=== PATIENT | male | born 1955 | race Caucasian/White ===

== ENCOUNTER 2022-06-30 15:41 | Inpatient (IN) | payer MEDICARE, MEDICAID ==
[~2022-06-30] VITALS: Ht 167.6 cm; Wt 117.0 kg
[2022-06-30 19:26] LABS: ALANINE AMINOTRANSFERASE 58 U/L (12-78); ALBUMIN 2.4 g/dL (3.4-5.0); ALKALINE PHOSPHATASE 327 U/L (46-116); ANION GAP 7 mmol/L (8-16); ASPARTATE AMINOTRANSFERASE 60 U/L (15-37); BILIRUBIN,TOTAL 1.3 mg/dL (0.1-1.0); CARBON DIOXIDE 25 mmol/L (22-29); CHLORIDE 104 mmol/L (98-107); CREATININE 2.07 mg/dL (0.60-1.30); GLUCOSE,RANDOM 88 mg/dL (70-110); POTASSIUM 4.1 mmol/L (3.5-5.1); SODIUM SERUM 136 mmol/L (136-145); THYROID STIMULATING HORMONE 7.68 uIU/mL (0.36-3.74); TOTAL PROTEIN, SERUM 5.8 g/dL (6.4-8.2); UREA NITROGEN, BLOOD 43 mg/dL (7-18)
[2022-06-30 19:29] LABS: GLOMERULAR FILTR. RATE CALC 32 mL/min (>60)
[2022-06-30 19:31] LABS: CALCIUM, TOTAL 16.8 mg/dL (8.8-10.5)
[2022-06-30 19:37] LABS: COVID AG,FIA SOURCE NASOPHARYNGEAL
[2022-06-30] MEDS ORDERED: LORazepam 2 MG/ML VIAL IM ONE (19:45)
[2022-06-30] MEDS ORDERED: DiphenhydrAMINE HCL 50 MG/ML VIAL IM ONE (19:45)
[2022-06-30] MEDS ORDERED: SODIUM CHLORIDE 0.9% 1,000 ML IV ONE (19:45)
[2022-06-30] MEDS ORDERED: HALOPERIDOL LACTATE 5 MG/ML VIAL IM ONE (19:45)
[2022-06-30 21:48] LABS: APPEARANCE,URINE CLEAR (CLEAR); BILIRUBIN,URINE NEGATIVE (NEGATIVE); GLUCOSE, URINE (UA) NEGATIVE (NEGATIVE); KETONES,URINE NEGATIVE (NEGATIVE); LEUKOCYTE ESTERASE ,URINE NEGATIVE (NEGATIVE); NITRATE,URINE NEGATIVE (NEGATIVE); OCCULT BLOOD,URINE MODERATE (NEGATIVE); PH,URINE 5.5 (5.0-8.0); PROTEIN,URINE NEGATIVE (NEGATIVE); SPECIFIC GRAVITIY, URINE 1.014 (1.003-1.030); UROBILINOGEN,URINE <=1.0 mg/dL (<=1.0)
[2022-06-30 21:53] LABS: AMPHET/METH SCREEN,URINE POSITIVE (NEGATIVE); BARBITURATE SCREEN, URINE NEGATIVE (NEGATIVE); BENZODIAZEPINES SCREEN,URINE NEGATIVE (NEGATIVE); CANNABINOID SCREEN,URINE NEGATIVE (NEGATIVE); COCAINE SCREEN,URINE NEGATIVE (NEGATIVE); METHADONE SCREEN, URINE NEGATIVE (NEGATIVE); OPIATE SCREEN,URINE NEGATIVE (NEGATIVE)
[2022-06-30 21:56] LABS: PHENCYCLIDINE SCREEN,URINE NEGATIVE (NEGATIVE)
[2022-06-30 22:03] LABS: INR 1.3 (0.9-1.1); PROTHROMBIN TIME 13.6 SEC (9.4-11.6)
[2022-06-30 22:09] LABS: BACTERIA,URINE None Seen /HPF (None Seen); WBC,URINE 0-2 /HPF (0-5)
[2022-06-30 22:17] LABS: LACTIC ACID 2.5 mmol/L (0.4-2.0)
[2022-06-30 22:27] LABS: BASOPHILS % (AUTO) 0.2 % (0.0-2.0); EOSINOPHILS % (AUTO) 2.1 % (1.0-6.0); HEMOGLOBIN 14.6 g/dL (13.5-17.5); LYMPHOCYTES # (AUTO) 0.6 K/uL (1.0-4.8); LYMPHOCYTES % (AUTO) 9.2 % (22.0-44.0); MEAN CORPUSCULAR HEMOGLOBIN 34.1 pg (26.0-34.0); MEAN CORPUSCULAR HGB CONC 34.1 G/dL (31.0-37.0); MEAN CORPUSCULAR VOLUME 100 fL (80-100); MONOCYTES # (AUTO) 0.8 K/uL (0.1-1.0); MONOCYTES % (AUTO) 12.4 % (2.0-9.0); NEUTROPHILS # (AUTO) 4.8 K/uL (1.8-7.7); NEUTROPHILS % (AUTO) 76.1 % (40.0-70.0); RED BLOOD CELL COUNT(AUTO) 4.29 MIL/uL (4.50-5.90); RED CELL DISTRIBUTION WIDTH 15.4 % (11.5-14.5)
[2022-06-30] MEDS ORDERED: AZITHROMYCIN 500 MG/NS 250 ML IV ONE (22:30)
[2022-06-30] MEDS ORDERED: CefTRIAXone 1 GM/DEXTROSE 50 ML IV ONE (22:30)
[2022-06-30 22:39] LABS: PLATELET COUNT (AUTO) 81 K/uL (150-450)
[2022-06-30] MEDS ORDERED: ONDANSETRON HCL 4 MG/2 ML VIAL IVP PRN (23:30)
[2022-06-30] MEDS ORDERED: ACETAMINOPHEN 325 MG TABLET PO PRN (23:30)
[2022-06-30] MEDS ORDERED: 0.9% SODIUM CHLORIDE 10 ML SYRINGE IVP PRN (23:30)
[2022-07-01] MEDS ORDERED: IPRATROPIUM BROMIDE 0.5 MG/2.5 ML NEB SOLUTION NEB PRN (00:30)
[2022-07-01] MEDS ORDERED: ZOLPIDEM TARTRATE 5 MG TABLET PO PRN (00:30)
[2022-07-01] MEDS ORDERED: BISACODYL 10 MG RECTAL RECTAL SUPPOSITORY PR PRN (00:30)
[2022-07-01] MEDS ORDERED: ACETAMINOPHEN 325 MG TABLET PO PRN (00:30)
[2022-07-01] MEDS ORDERED: ALBUTEROL SULFATE 2.5 MG/0.5 ML NEB SOLUTION NEB PRN (00:30)
[2022-07-01] MEDS ORDERED: ONDANSETRON HCL 4 MG/2 ML VIAL IVP PRN (00:30)
[2022-07-01] MEDS ORDERED: MAGNESIUM HYDROXIDE SUSPENSION 30 ML UDCUP PO PRN (00:30)
[2022-07-01 05:42] VITALS: BP 127/67
[2022-07-01] MEDS ORDERED: MULT-413 PO (05:42)
[2022-07-01] MEDS ORDERED: ATOR20TA65 PO (05:42)
[2022-07-01] MEDS ORDERED: BUPR-345 PO (05:42)
[2022-07-01] MEDS ORDERED: VITA-328 PO (05:42)
[2022-07-01] MEDS ORDERED: ESCI20TA37 PO (05:42)
[2022-07-01] MEDS ORDERED: METO25 PO (05:42)
[2022-07-01] MEDS ORDERED: LOSA-381 PO (05:42)
[2022-07-01] MEDS ORDERED: OLAN5TAB30 PO (05:42)
[2022-07-01] MEDS ORDERED: APIX5TAB PO (05:42)
[2022-07-01] MEDS ORDERED: BUME1TAB34 PO (05:42)
[2022-07-01 06:25] LABS: BASOPHILS % (AUTO) 0.2 % (0.0-2.0); EOSINOPHILS % (AUTO) 1.8 % (1.0-6.0); HEMATOCRIT 39.7 % (41-53); HEMOGLOBIN 13.7 g/dL (13.5-17.5); LYMPHOCYTES # (AUTO) 0.5 K/uL (1.0-4.8); MEAN CORPUSCULAR HEMOGLOBIN 34.3 pg (26.0-34.0); MEAN CORPUSCULAR HGB CONC 34.6 G/dL (31.0-37.0); MEAN CORPUSCULAR VOLUME 99 fL (80-100); MONOCYTES # (AUTO) 0.7 K/uL (0.1-1.0); MONOCYTES % (AUTO) 13.5 % (2.0-9.0); NEUTROPHILS # (AUTO) 3.9 K/uL (1.8-7.7); NEUTROPHILS % (AUTO) 74.5 % (40.0-70.0); PLATELET COUNT (AUTO) 65 K/uL (150-450); RED BLOOD CELL COUNT(AUTO) 4.01 MIL/uL (4.50-5.90); RED CELL DISTRIBUTION WIDTH 15.3 % (11.5-14.5)
[2022-07-01 06:56] LABS: ALBUMIN 2.1 g/dL (3.4-5.0); BILIRUBIN,TOTAL 1.1 mg/dL (0.1-1.0); CREATININE 1.9 mg/dL (0.60-1.30); TOTAL PROTEIN, SERUM 5.2 g/dL (6.4-8.2)
[2022-07-01 07:08] LABS: CALCIUM, TOTAL 15.3 mg/dL (8.8-10.5)
[2022-07-01] MEDS ORDERED: SODIUM CHLORIDE 0.9% 1,000 ML IV ONE (08:00)
[2022-07-01 08:11] VITALS: BP 123/79
[2022-07-01] MEDS: SODIUM CHLORIDE 0.45% 1,000 ML IV SCH ×3 (08:30→22:48)
[2022-07-01] MEDS: BuPROPion HCL XL 150 MG ER TABLET PO SCH ×2 (09:00→13:01)
[2022-07-01] MEDS: OLANZapine 5 MG TABLET PO SCH (09:00)
[2022-07-01] MEDS: PAMIDRONATE DISODIUM 90 MG in SODIUM CHLORIDE 0.9% 500 ML IV ONE ×2 (09:00→13:01)
[2022-07-01] MEDS ORDERED: METOPROLOL TARTRATE 25 MG TABLET PO SCH (09:00)
[2022-07-01 09:38] LABS: PLATELET MORPHOLOGY COMMENT LARGE PLTS PRESENT
[2022-07-01] MEDS ORDERED: TRAZ-257 PO (11:27)
[2022-07-01] MEDS ORDERED: OLAN5TAB52 PO (11:27)
[2022-07-01] MEDS ORDERED: ESCI-8 PO (11:27)
[2022-07-01] MEDS ORDERED: BUPR-50 PO (11:27)
[2022-07-01 12:00] VITALS: BP 145/74
[2022-07-01] MEDS: CALCITONIN,SALMON,SYNTHETIC 200 UNITS/ML 2 ML VIAL SQ SCH ×2 (13:01→21:00)
[2022-07-01] MEDS: DOCUSATE SODIUM 100 MG CAPSULE PO SCH ×2 (13:01→21:00)
[2022-07-01] MEDS: APIXABAN 5 MG TABLET PO SCH ×2 (13:01→21:00)
[2022-07-01] MEDS: PANTOPRAZOLE SODIUM 40 MG/VIAL IVP SCH (13:01)
[2022-07-01 16:13] VITALS: BP 131/75
[2022-07-01 17:57] LABS: CREATININE 2.04 mg/dL (0.60-1.30); MAGNESIUM 1.1 mg/dL (1.80-2.40); PHOSPHORUS 3.5 mg/dL (2.5-4.9); POTASSIUM 4.5 mmol/L (3.5-5.1)
[2022-07-01 19:40] VITALS: BP 146/68
[2022-07-01] MEDS: TraZODone HCL 50 MG TABLET PO SCH (21:00)
[2022-07-02 04:15] VITALS: BP 139/76
[2022-07-02 08:15] VITALS: BP 123/96
[2022-07-02] MEDS: PANTOPRAZOLE SODIUM 40 MG/VIAL IVP SCH (09:00)
[2022-07-02] MEDS: LACTULOSE 20 GM/30 ML SOLUTION UDCUP PO SCH ×4 (10:29→23:12)
[2022-07-02] MEDS: METOPROLOL SUCCINATE 25 MG ER TABLET PO SCH (10:29)
[2022-07-02] MEDS: DOCUSATE SODIUM 100 MG CAPSULE PO SCH ×2 (10:29→20:56)
[2022-07-02] MEDS: APIXABAN 5 MG TABLET PO SCH ×2 (10:29→20:56)
[2022-07-02] MEDS: OLANZapine 5 MG TABLET PO SCH (10:30)
[2022-07-02] MEDS: CALCITONIN,SALMON,SYNTHETIC 200 UNITS/ML 2 ML VIAL SQ SCH ×2 (10:30→20:56)
[2022-07-02] MEDS: BuPROPion HCL XL 150 MG ER TABLET PO SCH (10:30)
[2022-07-02 11:16] VITALS: BP 100/67
[2022-07-02 12:31] LABS: CREATININE 1.99 mg/dL (0.60-1.30); PHOSPHORUS 2.8 mg/dL (2.5-4.9); POTASSIUM 4.2 mmol/L (3.5-5.1)
[2022-07-02 12:38] LABS: CALCIUM, TOTAL 14.4 mg/dL (8.8-10.5)
[2022-07-02] MEDS: SODIUM CHLORIDE 0.45% 1,000 ML IV SCH (13:20)
[2022-07-02 20:55] VITALS: BP 142/85
[2022-07-02] MEDS: TraZODone HCL 50 MG TABLET PO SCH (20:56)
[2022-07-02] MEDS ORDERED: MAGNESIUM SULFATE 2 GM/WATER 50 ML IV ONE (21:00)
[2022-07-02] MEDS: HALOPERIDOL LACTATE 5 MG/ML VIAL IVP PRN (23:12)
[2022-07-03 00:58] VITALS: BP 148/90
[2022-07-03] MEDS: SODIUM CHLORIDE 0.45% 1,000 ML IV SCH ×2 (01:39→17:06)
[2022-07-03 04:42] VITALS: BP 128/92
[2022-07-03 06:00] LABS: CREATININE 1.82 mg/dL (0.60-1.30); MAGNESIUM 1.4 mg/dL (1.80-2.40); PHOSPHORUS 2.9 mg/dL (2.5-4.9); POTASSIUM 3.5 mmol/L (3.5-5.1)
[2022-07-03 06:06] LABS: CALCIUM, TOTAL 14.3 mg/dL (8.8-10.5)
[2022-07-03 06:13] LABS: BASOPHILS % (AUTO) 0.3 % (0.0-2.0); EOSINOPHILS % (AUTO) 3.1 % (1.0-6.0); HEMATOCRIT 40.1 % (41-53); HEMOGLOBIN 13.6 g/dL (13.5-17.5); LYMPHOCYTES # (AUTO) 0.6 K/uL (1.0-4.8); LYMPHOCYTES % (AUTO) 10.3 % (22.0-44.0); MEAN CORPUSCULAR HGB CONC 33.9 G/dL (31.0-37.0); MEAN CORPUSCULAR VOLUME 100 fL (80-100); MONOCYTES # (AUTO) 0.7 K/uL (0.1-1.0); NEUTROPHILS # (AUTO) 3.9 K/uL (1.8-7.7); NEUTROPHILS % (AUTO) 72.3 % (40.0-70.0); PLATELET COUNT (AUTO) 67 K/uL (150-450); RED CELL DISTRIBUTION WIDTH 15.3 % (11.5-14.5)
[2022-07-03] MEDS: HALOPERIDOL LACTATE 5 MG/ML VIAL IVP PRN ×2 (06:52→17:06)
[2022-07-03 08:15] VITALS: BP 138/76
[2022-07-03] MEDS ORDERED: MAGNESIUM SULFATE 2 GM/WATER 50 ML IV ONE (08:15)
[2022-07-03] MEDS ORDERED: MAGNESIUM OXIDE 400 MG TABLET PO ONE (08:45)
[2022-07-03] MEDS ORDERED: DEXTROSE 5%-WATER 1,000 ML IV ONE (08:45)
[2022-07-03] MEDS: OLANZapine 5 MG TABLET PO SCH ×2 (09:17→21:13)
[2022-07-03] MEDS: PANTOPRAZOLE SODIUM 40 MG/VIAL IVP SCH (09:17)
[2022-07-03] MEDS: APIXABAN 5 MG TABLET PO SCH ×2 (09:17→21:14)
[2022-07-03] MEDS: BuPROPion HCL XL 150 MG ER TABLET PO SCH (09:17)
[2022-07-03] MEDS: METOPROLOL SUCCINATE 25 MG ER TABLET PO SCH (09:17)
[2022-07-03] MEDS: DOCUSATE SODIUM 100 MG CAPSULE PO SCH ×2 (09:18→21:00)
[2022-07-03] MEDS: LACTULOSE 20 GM/30 ML SOLUTION UDCUP PO SCH ×2 (09:18→15:50)
[2022-07-03] MEDS: CALCITONIN,SALMON,SYNTHETIC 200 UNITS/ML 2 ML VIAL SQ SCH ×2 (09:19→21:15)
[2022-07-03 12:00] VITALS: BP 104/69
[2022-07-03] MEDS: TraZODone HCL 50 MG TABLET PO SCH (21:14)
[2022-07-03 21:43] VITALS: BP 157/78
[2022-07-04 00:31] VITALS: BP 140/80
[2022-07-04 06:44] LABS: CREATININE 1.62 mg/dL (0.60-1.30); MAGNESIUM 1.3 mg/dL (1.80-2.40); PHOSPHORUS 2.4 mg/dL (2.5-4.9)
[2022-07-04 06:47] VITALS: BP 142/82
[2022-07-04 06:50] LABS: POTASSIUM 3.7 mmol/L (3.5-5.1)
[2022-07-04 06:53] LABS: CALCIUM, TOTAL 12.3 mg/dL (8.8-10.5)
[2022-07-04] MEDS: LACTULOSE 20 GM/30 ML SOLUTION UDCUP PO SCH ×2 (08:00)
[2022-07-04] MEDS: SODIUM CHLORIDE 0.45% 1,000 ML IV SCH (08:03)
[2022-07-04 08:08] VITALS: BP 157/65
[2022-07-04] MEDS: PANTOPRAZOLE SODIUM 40 MG/VIAL IVP SCH (08:17)
[2022-07-04] MEDS: CALCITONIN,SALMON,SYNTHETIC 200 UNITS/ML 2 ML VIAL SQ SCH ×2 (08:17→20:43)
[2022-07-04] MEDS: OLANZapine 5 MG TABLET PO SCH ×2 (08:18→21:28)
[2022-07-04] MEDS: DOCUSATE SODIUM 100 MG CAPSULE PO SCH ×2 (08:18→21:00)
[2022-07-04] MEDS: METOPROLOL SUCCINATE 25 MG ER TABLET PO SCH (08:18)
[2022-07-04] MEDS: BuPROPion HCL XL 150 MG ER TABLET PO SCH (08:18)
[2022-07-04] MEDS: APIXABAN 5 MG TABLET PO SCH ×2 (08:18→21:24)
[2022-07-04] MEDS ORDERED: MAGNESIUM SULFATE 3 GM in DEXTROSE 5%-WATER 100 ML IV ONE (09:15)
[2022-07-04] MEDS: SODIUM,POTASSIUM PHOSPHATES POWDER PACKET PO SCH ×2 (11:04→21:28)
[2022-07-04 11:09] VITALS: BP 129/60
[2022-07-04] MEDS ORDERED: FUROSEMIDE 20 MG/2 ML VIAL IVP ONE (14:45)
[2022-07-04 16:00] VITALS: BP 131/77
[2022-07-04 19:22] VITALS: BP 135/64
[2022-07-04] MEDS: HALOPERIDOL LACTATE 5 MG/ML VIAL IVP PRN (19:36)
[2022-07-04] MEDS: TraZODone HCL 50 MG TABLET PO SCH (21:28)
[2022-07-05] VITALS (7 sets, daily range): BP systolic 104–142; BP diastolic 57–78
[2022-07-05] MEDS: PANTOPRAZOLE SODIUM 40 MG/VIAL IVP SCH (08:29)
[2022-07-05] MEDS: CALCITONIN,SALMON,SYNTHETIC 200 UNITS/ML 2 ML VIAL SQ SCH ×2 (08:29→21:29)
[2022-07-05] MEDS: METOPROLOL SUCCINATE 25 MG ER TABLET PO SCH (08:30)
[2022-07-05] MEDS: OLANZapine 5 MG TABLET PO SCH ×2 (08:30→21:31)
[2022-07-05] MEDS: BuPROPion HCL XL 150 MG ER TABLET PO SCH (08:30)
[2022-07-05] MEDS: DOCUSATE SODIUM 100 MG CAPSULE PO SCH ×2 (08:30→21:31)
[2022-07-05] MEDS: APIXABAN 5 MG TABLET PO SCH ×2 (08:30→21:31)
[2022-07-05 08:44] LABS: CREATININE 1.65 mg/dL (0.60-1.30); MAGNESIUM 1.5 mg/dL (1.80-2.40); PHOSPHORUS 2.3 mg/dL (2.5-4.9); POTASSIUM 3.6 mmol/L (3.5-5.1)
[2022-07-05 09:01] LABS: CALCIUM, TOTAL 11.7 mg/dL (8.8-10.5)
[2022-07-05] MEDS: HALOPERIDOL LACTATE 5 MG/ML VIAL IVP PRN ×3 (14:39→23:35)
[2022-07-05] MEDS: TraZODone HCL 50 MG TABLET PO SCH (21:32)
[2022-07-06 05:13] VITALS: BP 138/135
[2022-07-06 07:16] VITALS: BP 131/72
[2022-07-06] MEDS: PANTOPRAZOLE SODIUM 40 MG/VIAL IVP SCH (08:50)
[2022-07-06] MEDS: DOCUSATE SODIUM 100 MG CAPSULE PO SCH ×2 (08:55→20:42)
[2022-07-06] MEDS: APIXABAN 5 MG TABLET PO SCH ×2 (08:56→20:33)
[2022-07-06] MEDS: METOPROLOL SUCCINATE 25 MG ER TABLET PO SCH (08:56)
[2022-07-06] MEDS: CALCITONIN,SALMON,SYNTHETIC 200 UNITS/ML 2 ML VIAL SQ SCH ×2 (09:00→21:20)
[2022-07-06 10:49] LABS: BASOPHILS % (AUTO) 0.4 % (0.0-2.0); EOSINOPHILS % (AUTO) 0.8 % (1.0-6.0); HEMATOCRIT 37.3 % (41-53); HEMOGLOBIN 12.7 g/dL (13.5-17.5); LYMPHOCYTES # (AUTO) 0.5 K/uL (1.0-4.8); LYMPHOCYTES % (AUTO) 11.3 % (22.0-44.0); MEAN CORPUSCULAR VOLUME 100 fL (80-100); MONOCYTES # (AUTO) 0.5 K/uL (0.1-1.0); MONOCYTES % (AUTO) 11.7 % (2.0-9.0); NEUTROPHILS # (AUTO) 3.4 K/uL (1.8-7.7); NEUTROPHILS % (AUTO) 75.8 % (40.0-70.0); PLATELET COUNT (AUTO) 59 K/uL (150-450); RED BLOOD CELL COUNT(AUTO) 3.74 MIL/uL (4.50-5.90); RED CELL DISTRIBUTION WIDTH 15.4 % (11.5-14.5)
[2022-07-06 10:58] LABS: CREATININE 1.79 mg/dL (0.60-1.30); POTASSIUM 3.7 mmol/L (3.5-5.1)
[2022-07-06 11:03] LABS: CALCIUM, TOTAL 11.9 mg/dL (8.8-10.5)
[2022-07-06 11:13] VITALS: BP 128/72
[2022-07-06 11:17] LABS: PLATELET MORPHOLOGY COMMENT GIANT PLTS PRESENT
[2022-07-06] MEDS: HALOPERIDOL LACTATE 5 MG/ML VIAL IVP PRN (11:50)
[2022-07-06] MEDS: OLANZapine 5 MG TABLET PO SCH ×2 (11:50→20:33)
[2022-07-06] MEDS: BuPROPion HCL XL 150 MG ER TABLET PO SCH (11:50)
[2022-07-06 15:52] VITALS: BP 124/68
[2022-07-06 20:32] VITALS: BP 130/73
[2022-07-06] MEDS: TraZODone HCL 50 MG TABLET PO SCH (20:33)
[2022-07-06 23:38] VITALS: BP 142/77
[2022-07-07 05:44] VITALS: BP 136/63
[2022-07-07 06:33] LABS: BASOPHILS % (AUTO) 0.7 % (0.0-2.0); EOSINOPHILS % (AUTO) 0.9 % (1.0-6.0); HEMATOCRIT 38.7 % (41-53); HEMOGLOBIN 13.2 g/dL (13.5-17.5); LYMPHOCYTES # (AUTO) 0.6 K/uL (1.0-4.8); LYMPHOCYTES % (AUTO) 10.8 % (22.0-44.0); MEAN CORPUSCULAR HGB CONC 34.1 G/dL (31.0-37.0); MEAN CORPUSCULAR VOLUME 100 fL (80-100); MONOCYTES # (AUTO) 0.6 K/uL (0.1-1.0); MONOCYTES % (AUTO) 12.3 % (2.0-9.0); NEUTROPHILS # (AUTO) 3.9 K/uL (1.8-7.7); NEUTROPHILS % (AUTO) 75.3 % (40.0-70.0); PLATELET COUNT (AUTO) 63 K/uL (150-450); RED BLOOD CELL COUNT(AUTO) 3.88 MIL/uL (4.50-5.90); RED CELL DISTRIBUTION WIDTH 15.3 % (11.5-14.5)
[2022-07-07 06:43] LABS: CALCIUM, TOTAL 11.1 mg/dL (8.8-10.5); CREATININE 1.86 mg/dL (0.60-1.30); POTASSIUM 3.9 mmol/L (3.5-5.1)
[2022-07-07 07:20] VITALS: BP 120/74
[2022-07-07] MEDS: DOCUSATE SODIUM 100 MG CAPSULE PO SCH ×2 (07:53→20:08)
[2022-07-07] MEDS: BuPROPion HCL XL 150 MG ER TABLET PO SCH (07:53)
[2022-07-07] MEDS: APIXABAN 5 MG TABLET PO SCH ×2 (07:54→20:08)
[2022-07-07] MEDS: METOPROLOL SUCCINATE 25 MG ER TABLET PO SCH (07:54)
[2022-07-07] MEDS: OLANZapine 5 MG TABLET PO SCH ×2 (07:54→20:07)
[2022-07-07] MEDS: PANTOPRAZOLE SODIUM 40 MG/VIAL IVP SCH (08:01)
[2022-07-07] MEDS: CALCITONIN,SALMON,SYNTHETIC 200 UNITS/ML 2 ML VIAL SQ SCH ×2 (08:10→21:44)
[2022-07-07 08:38] LABS: PLATELET MORPHOLOGY COMMENT GIANT PLTS PRESENT
[2022-07-07 12:17] VITALS: BP 104/62
[2022-07-07] MEDS ORDERED: MAGNESIUM SULFATE 2 GM/WATER 50 ML IV ONE (15:00)
[2022-07-07] MEDS ORDERED: MAGNESIUM SULFATE 3 GM in DEXTROSE 5%-WATER 100 ML IV ONE (15:00)
[2022-07-07] MEDS ORDERED: MAGNESIUM SULFATE 1 GM in DEXTROSE 5%-WATER 50 ML IV ONE (15:00)
[2022-07-07] MEDS ORDERED: MAGNESIUM SULFATE 4 GM/WATER 100 ML IV ONE (15:00)
[2022-07-07 15:43] VITALS: BP 112/66
[2022-07-07] MEDS ORDERED: SODIUM CHLORIDE 0.9% 250 ML IV ONE (18:10)
[2022-07-07 19:41] VITALS: BP 129/70
[2022-07-07] MEDS: TraZODone HCL 100 MG TABLET PO SCH (20:07)
[2022-07-07] MEDS: HALOPERIDOL LACTATE 5 MG/ML VIAL IVP PRN (21:39)
[2022-07-08 01:16] VITALS: BP 122/68
[2022-07-08] MEDS: HALOPERIDOL LACTATE 5 MG/ML VIAL IVP PRN (01:55)
[2022-07-08] MEDS ORDERED: MELATONIN 3 MG TABLET PO ONE (03:15)
[2022-07-08 05:30] VITALS: BP 125/65
[2022-07-08 07:50] VITALS: BP 109/64
[2022-07-08] MEDS: METOPROLOL SUCCINATE 25 MG ER TABLET PO SCH (08:26)
[2022-07-08] MEDS: OLANZapine 5 MG TABLET PO SCH ×2 (08:26→21:21)
[2022-07-08] MEDS: BuPROPion HCL XL 150 MG ER TABLET PO SCH (08:26)
[2022-07-08] MEDS: APIXABAN 5 MG TABLET PO SCH ×2 (08:26→21:21)
[2022-07-08] MEDS: DOCUSATE SODIUM 100 MG CAPSULE PO SCH ×2 (08:27→21:21)
[2022-07-08] MEDS: PANTOPRAZOLE SODIUM 40 MG/VIAL IVP SCH (08:27)
[2022-07-08] MEDS: CALCITONIN,SALMON,SYNTHETIC 200 UNITS/ML 2 ML VIAL SQ SCH ×2 (08:27→21:22)
[2022-07-08 11:35] VITALS: BP 104/60
[2022-07-08 12:00] LABS: CALCIUM, TOTAL 11.1 mg/dL (8.8-10.5); CREATININE 1.75 mg/dL (0.60-1.30); POTASSIUM 3.8 mmol/L (3.5-5.1)
[2022-07-08 12:04] LABS: PHOSPHORUS 2.3 mg/dL (2.5-4.9)
[2022-07-08 14:45] VITALS: BP 108/66
[2022-07-08 20:01] VITALS: BP 103/67
[2022-07-08] MEDS: TraZODone HCL 100 MG TABLET PO SCH (21:21)
[2022-07-09] MEDS ORDERED: MELATONIN 3 MG TABLET PO PRN (00:30)
[2022-07-09 03:03] VITALS: BP 123/67
[2022-07-09 05:07] LABS: ALPHA-1 URINE 5.2 %; ALPHA-2 URINE 11.8 %
[2022-07-09 06:58] LABS: CALCIUM, TOTAL 11.1 mg/dL (8.8-10.5); CREATININE 1.75 mg/dL (0.60-1.30); MAGNESIUM 1.5 mg/dL (1.80-2.40); PHOSPHORUS 2.2 mg/dL (2.5-4.9); POTASSIUM 3.7 mmol/L (3.5-5.1)
[2022-07-09 08:00] VITALS: BP 106/70
[2022-07-09] MEDS ORDERED: MAGNESIUM OXIDE 400 MG TABLET PO ONE (08:15)
[2022-07-09] MEDS: BuPROPion HCL XL 150 MG ER TABLET PO SCH (08:56)
[2022-07-09] MEDS: DOCUSATE SODIUM 100 MG CAPSULE PO SCH (08:56)
[2022-07-09] MEDS: OLANZapine 5 MG TABLET PO SCH (08:56)
[2022-07-09] MEDS: PANTOPRAZOLE SODIUM 40 MG/VIAL IVP SCH (08:58)
[2022-07-09] MEDS: APIXABAN 5 MG TABLET PO SCH (08:59)
[2022-07-09] MEDS ORDERED: METOPROLOL SUCCINATE 25 MG ER TABLET PO SCH (09:00)
[2022-07-09] MEDS ORDERED: LOSARTAN POTASSIUM 25 MG TABLET PO SCH (09:00)
[2022-07-09 12:01] LABS: COVID AG,FIA SOURCE NASAL SWAB
[2022-07-09] MEDS: CALCITONIN,SALMON,SYNTHETIC 200 UNITS/ML 2 ML VIAL SQ SCH (12:05)
[2022-07-09] MEDS ORDERED: MAGNESIUM SULFATE 4 GM/WATER 100 ML IV ONE (14:00)
[2022-07-09] MEDS ORDERED: SODIUM PHOS,M-BASIC-D-BASIC 30 MMOL in DEXTROSE 5%-WATER 250 ML IV ONE (14:00)
[2022-07-09] MEDS ORDERED: APIX5TAB PO (14:45)
[2022-07-09] MEDS ORDERED: CALC400I SQ (14:49)
[2022-07-09] MEDS ORDERED: DOCU-385 PO (14:50)
[2022-07-09] MEDS ORDERED: PANT-31 PO (15:01)
[2022-07-09] MEDS ORDERED: ACET-2247 PO (15:01)
[2022-07-09] MEDS ORDERED: AUD NEB (15:02)
[2022-07-09] MEDS ORDERED: BISA10SU11 PR ×2 (15:03→15:15)
[2022-07-09] MEDS ORDERED: MELA3TAB89 PO (15:04)
[2022-07-09] MEDS ORDERED: IPRNEB IH (15:16)
== END 2022-07-09 16:45 | DRG 441 ==
LOC: EMS 15:45 → 5S 07-01 01:21 → 6S 07-08 18:40
PROVIDERS: ADMIT Hospitalist; ATTEND Hospitalist
PROC: 05HB33Z Insertion of Infusion Device into Right Basilic Vein, Percutaneous Approach (ICD-10-PCS; principal; 2022-07-02)
DX: K72.90 Hepatic failure, unspecified without coma (principal); E43 Unspecified severe protein-calorie malnutrition; I42.9 Cardiomyopathy, unspecified; I48.21 Permanent atrial fibrillation; N17.9 Acute kidney failure, unspecified; G93.40 Encephalopathy, unspecified; C34.90 Malignant neoplasm of unspecified part of unspecified bronchus or lung; C85.90 Non-Hodgkin lymphoma, unspecified, unspecified site; C95.90 Leukemia, unspecified not having achieved remission; I50.20 Unspecified systolic (congestive) heart failure; C90.00 Multiple myeloma not having achieved remission; F23 Brief psychotic disorder; Z68.41 Body mass index [BMI] 40.0-44.9, adult; E83.52 Hypercalcemia; E03.9 Hypothyroidism, unspecified; F15.10 Other stimulant abuse, uncomplicated; E83.42 Hypomagnesemia; N18.9 Chronic kidney disease, unspecified; C50.929 Malignant neoplasm of unspecified site of unspecified male breast; E83.39 Other disorders of phosphorus metabolism; Z20.822 Contact with and (suspected) exposure to COVID-19; F19.10 Other psychoactive substance abuse, uncomplicated; D69.6 Thrombocytopenia, unspecified; E66.01 Morbid (severe) obesity due to excess calories; K70.9 Alcoholic liver disease, unspecified; Z79.01 Long term (current) use of anticoagulants; Z78.1 Physical restraint status; Z79.899 Other long term (current) drug therapy
CPT/HCPCS: 36245; 36569; 70450; 71045; 76937; 80048; 80053; 81001; 81050; 82140; 82330; 82340; 82397; 82550; 82652; 83605; 83735; 83880; 83970; 84100; 84155; 84156; 84165; 84166; 84439; 84443; 84481; 84484; 85025; 85610; 85730; 86335; 87040; 93005; 93306; 97110; 97116; 97162; 97165; 97530; 97535; 99291; C9113; G0480; J0456; J0630; J0696; J1200; J1630; J1940; J2060; J2430; J3475; J3490; J7030; J7040; J7050; J7060; 36415-L1; 36415-TC; X7700

== ENCOUNTER 2022-08-06 15:12 | Inpatient (IN) | payer MEDICARE, MEDICAID ==
[~2022-08-06] VITALS: Ht 172.7 cm; Wt 97.6 kg
[~2022-08-06 15:12] MED LIST: ACET-2247 PO; APIX5TAB PO; AUD NEB; BISA10SU11 PR; BUPR-50 PO; CALC400I SQ; DOCU-385 PO; IPRNEB IH; LOSA-381 PO; MELA3TAB89 PO; METO25 PO; OLAN5TAB52 PO; PANT-31 PO; TRAZ-257 PO
[2022-08-06 18:51] LABS: BASOPHILS % (AUTO) 0.3 % (0.0-2.0); EOSINOPHILS % (AUTO) 0 % (1.0-6.0); HEMATOCRIT 41.7 % (41-53); HEMOGLOBIN 13.9 g/dL (13.5-17.5); LYMPHOCYTES # (AUTO) 0.7 K/uL (1.0-4.8); LYMPHOCYTES % (AUTO) 13.8 % (22.0-44.0); MEAN CORPUSCULAR HEMOGLOBIN 33.2 pg (26.0-34.0); MEAN CORPUSCULAR HGB CONC 33.3 G/dL (31.0-37.0); MEAN CORPUSCULAR VOLUME 100 fL (80-100); MONOCYTES # (AUTO) 0.8 K/uL (0.1-1.0); MONOCYTES % (AUTO) 15.4 % (2.0-9.0); NEUTROPHILS # (AUTO) 3.7 K/uL (1.8-7.7); NEUTROPHILS % (AUTO) 70.5 % (40.0-70.0); RED BLOOD CELL COUNT(AUTO) 4.17 MIL/uL (4.50-5.90); RED CELL DISTRIBUTION WIDTH 15.4 % (11.5-14.5)
[2022-08-06 19:04] LABS: COVID AG,FIA SOURCE NASAL SWAB
[2022-08-06 19:05] LABS: ALBUMIN 2.8 g/dL (3.4-5.0); CREATININE 4.62 mg/dL (0.60-1.30); PHOSPHORUS 4.2 mg/dL (2.5-4.9); TOTAL PROTEIN, SERUM 6.4 g/dL (6.4-8.2)
[2022-08-06 19:09] LABS: PLATELET COUNT (AUTO) 77 K/uL (150-450)
[2022-08-06 19:10] LABS: BILIRUBIN,TOTAL 1.9 mg/dL (0.1-1.0)
[2022-08-06 19:12] LABS: MAGNESIUM 1.5 mg/dL (1.80-2.40); POTASSIUM 2.9 mmol/L (3.5-5.1)
[2022-08-06 19:13] LABS: CALCIUM, TOTAL 17.7 mg/dL (8.8-10.5)
[2022-08-06] MEDS ORDERED: SODIUM CHLORIDE 0.9% 1,000 ML IV ONE ×2 (19:30→20:00)
[2022-08-06] MEDS ORDERED: SODIUM CHLORIDE 0.45% 1,000 ML IV ONE (19:45)
[2022-08-06 19:58] LABS: THYROID STIMULATING HORMONE 4.33 uIU/mL (0.36-3.74)
[2022-08-06] MEDS ORDERED: POTASSIUM CHL 20 MEQ/D5-0.2NS 1,000 ML IV ONE (20:00)
[2022-08-06] MEDS ORDERED: ONDANSETRON HCL 4 MG/2 ML VIAL IVP PRN (20:00)
[2022-08-06] MEDS ORDERED: ACETAMINOPHEN 325 MG TABLET PO PRN (20:00)
[2022-08-06] MEDS ORDERED: POTASSIUM CHLORIDE 10% 40 MEQ/30 ML LIQUID UDCUP PO ONE (20:15)
[2022-08-06] MEDS ORDERED: APIX2.5T PO (20:18)
[2022-08-06] MEDS ORDERED: PAMIDRONATE DISODIUM 90 MG in SODIUM CHLORIDE 0.9% 500 ML IV ONE (20:30)
[2022-08-06] MEDS: SODIUM CHLORIDE 0.9% 1,000 ML IV SCH (20:30)
[2022-08-06] MEDS ORDERED: BISACODYL 10 MG RECTAL RECTAL SUPPOSITORY PR PRN (20:30)
[2022-08-06] MEDS ORDERED: CALCITONIN,SALMON,SYNTHETIC 200 UNITS/ML 2 ML VIAL SQ SCH (21:00)
[2022-08-06] MEDS ORDERED: APIXABAN 2.5 MG TABLET PO SCH (21:00)
[2022-08-06] MEDS: OLANZapine 5 MG TABLET PO SCH (22:49)
[2022-08-06] MEDS: DOCUSATE SODIUM 100 MG CAPSULE PO SCH (22:49)
[2022-08-06] MEDS: MELATONIN 3 MG TABLET PO SCH (22:49)
[2022-08-06] MEDS: CALCITONIN,SALMON,SYNTHETIC 200 UNITS/ML 2 ML VIAL SQ SCH (22:55)
[2022-08-07] MEDS ORDERED: HEPARIN SODIUM,PORCINE 5,000 UNITS/ML VIAL SQ SCH
[2022-08-07 01:04] LABS: CREATININE 4.49 mg/dL (0.60-1.30); MAGNESIUM 1.3 mg/dL (1.80-2.40); PHOSPHORUS 4.3 mg/dL (2.5-4.9); POTASSIUM 3.5 mmol/L (3.5-5.1)
[2022-08-07 01:06] LABS: CALCIUM, TOTAL 16.4 mg/dL (8.8-10.5)
[2022-08-07 02:51] LABS: APPEARANCE,URINE HAZY (CLEAR); BILIRUBIN,URINE NEGATIVE (NEGATIVE); GLUCOSE, URINE (UA) NEGATIVE (NEGATIVE); KETONES,URINE NEGATIVE (NEGATIVE); LEUKOCYTE ESTERASE ,URINE NEGATIVE (NEGATIVE); NITRATE,URINE NEGATIVE (NEGATIVE); OCCULT BLOOD,URINE LARGE (NEGATIVE); PH,URINE 6.5 (5.0-8.0); PROTEIN,URINE NEGATIVE (NEGATIVE); SPECIFIC GRAVITIY, URINE 1.006 (1.003-1.030); UROBILINOGEN,URINE <=1.0 mg/dL (<=1.0)
[2022-08-07 02:56] LABS: CREATININE,URINE RANDOM 10.7 mg/dL (30.0-125.0)
[2022-08-07 03:02] LABS: BACTERIA,URINE None Seen /HPF (None Seen); RBC,URINE >100 /HPF (0-2); WBC,URINE None Seen /HPF (0-5)
[2022-08-07] MEDS: SODIUM CHLORIDE 0.9% 1,000 ML IV SCH (05:35)
[2022-08-07] MEDS ORDERED: DEXTROSE 5%-WATER 1,000 ML IV ONE (08:45)
[2022-08-07 08:59] LABS: CREATININE 4.4 mg/dL (0.60-1.30); POTASSIUM 3.6 mmol/L (3.5-5.1)
[2022-08-07] MEDS: PANTOPRAZOLE SODIUM 40 MG DR TABLET PO SCH (09:00)
[2022-08-07] MEDS: OLANZapine 5 MG TABLET PO SCH ×2 (09:00→21:00)
[2022-08-07] MEDS: DOCUSATE SODIUM 100 MG CAPSULE PO SCH ×2 (09:00→21:00)
[2022-08-07] MEDS: APIXABAN 2.5 MG TABLET PO SCH ×2 (09:00→21:00)
[2022-08-07] MEDS: BuPROPion HCL XL 150 MG ER TABLET PO SCH (09:00)
[2022-08-07] MEDS: METOPROLOL TARTRATE 25 MG TABLET PO SCH (09:00)
[2022-08-07] MEDS ORDERED: MAGNESIUM SULFATE 1 GM in DEXTROSE 5%-WATER 50 ML IV ONE (09:00)
[2022-08-07 09:06] LABS: CALCIUM, TOTAL 15.1 mg/dL (8.8-10.5)
[2022-08-07] MEDS: CALCITONIN,SALMON,SYNTHETIC 200 UNITS/ML 2 ML VIAL SQ SCH (09:51)
[2022-08-07 17:34] LABS: BASOPHILS % (AUTO) 0.3 % (0.0-2.0); EOSINOPHILS % (AUTO) 0 % (1.0-6.0); HEMATOCRIT 40.6 % (41-53); HEMOGLOBIN 13.5 g/dL (13.5-17.5); LYMPHOCYTES # (AUTO) 0.8 K/uL (1.0-4.8); LYMPHOCYTES % (AUTO) 15.7 % (22.0-44.0); MEAN CORPUSCULAR HEMOGLOBIN 33.4 pg (26.0-34.0); MEAN CORPUSCULAR HGB CONC 33.2 G/dL (31.0-37.0); MEAN CORPUSCULAR VOLUME 101 fL (80-100); MONOCYTES # (AUTO) 0.6 K/uL (0.1-1.0); MONOCYTES % (AUTO) 11.6 % (2.0-9.0); NEUTROPHILS # (AUTO) 3.9 K/uL (1.8-7.7); NEUTROPHILS % (AUTO) 72.4 % (40.0-70.0); RED BLOOD CELL COUNT(AUTO) 4.03 MIL/uL (4.50-5.90); RED CELL DISTRIBUTION WIDTH 16.1 % (11.5-14.5)
[2022-08-07 17:49] LABS: ALBUMIN 2.4 g/dL (3.4-5.0); BILIRUBIN,TOTAL 1.8 mg/dL (0.1-1.0); CREATININE 4.19 mg/dL (0.60-1.30); POTASSIUM 3.4 mmol/L (3.5-5.1)
[2022-08-07 17:51] LABS: CALCIUM, TOTAL 14.8 mg/dL (8.8-10.5)
[2022-08-07 18:04] LABS: PLATELET COUNT (AUTO) 64 K/uL (150-450); PLATELET MORPHOLOGY COMMENT GIANT PLTS PRESENT
[2022-08-07] MEDS: MELATONIN 3 MG TABLET PO SCH (21:00)
[2022-08-08 01:10] VITALS: BP 128/58
[2022-08-08] MEDS: CALCITONIN,SALMON,SYNTHETIC 200 UNITS/ML 2 ML VIAL SQ SCH ×3 (01:55→20:48)
[2022-08-08 04:23] VITALS: BP 100/51
[2022-08-08 08:00] VITALS: BP 130/70
[2022-08-08] MEDS: BuPROPion HCL XL 150 MG ER TABLET PO SCH (09:17)
[2022-08-08] MEDS: DOCUSATE SODIUM 100 MG CAPSULE PO SCH ×2 (09:17→20:36)
[2022-08-08] MEDS: METOPROLOL TARTRATE 25 MG TABLET PO SCH (09:18)
[2022-08-08] MEDS: OLANZapine 5 MG TABLET PO SCH ×2 (09:18→20:36)
[2022-08-08] MEDS: PANTOPRAZOLE SODIUM 40 MG DR TABLET PO SCH (09:19)
[2022-08-08] MEDS: APIXABAN 2.5 MG TABLET PO SCH ×2 (09:19→20:36)
[2022-08-08 09:34] LABS: BASOPHILS % (AUTO) 0.2 % (0.0-2.0); EOSINOPHILS % (AUTO) 0 % (1.0-6.0); HEMATOCRIT 43.2 % (41-53); HEMOGLOBIN 14.3 g/dL (13.5-17.5); LYMPHOCYTES % (AUTO) 15.2 % (22.0-44.0); MEAN CORPUSCULAR HEMOGLOBIN 33.4 pg (26.0-34.0); MEAN CORPUSCULAR HGB CONC 33.2 G/dL (31.0-37.0); MEAN CORPUSCULAR VOLUME 101 fL (80-100); MONOCYTES # (AUTO) 0.8 K/uL (0.1-1.0); MONOCYTES % (AUTO) 12.1 % (2.0-9.0); NEUTROPHILS # (AUTO) 4.9 K/uL (1.8-7.7); NEUTROPHILS % (AUTO) 72.5 % (40.0-70.0); PLATELET COUNT (AUTO) 76 K/uL (150-450); RED BLOOD CELL COUNT(AUTO) 4.29 MIL/uL (4.50-5.90); RED CELL DISTRIBUTION WIDTH 15.8 % (11.5-14.5)
[2022-08-08 09:40] LABS: PLATELET MORPHOLOGY COMMENT GIANT PLTS PRESENT
[2022-08-08 09:47] LABS: INR 1.3 (0.9-1.1)
[2022-08-08 09:59] LABS: ALBUMIN 2.6 g/dL (3.4-5.0); BILIRUBIN,TOTAL 2.7 mg/dL (0.1-1.0); CREATININE 4.18 mg/dL (0.60-1.30); POTASSIUM 3.8 mmol/L (3.5-5.1); TOTAL PROTEIN, SERUM 6.4 g/dL (6.4-8.2)
[2022-08-08 10:13] LABS: CALCIUM, TOTAL 14.1 mg/dL (8.8-10.5)
[2022-08-08] MEDS: SODIUM CHLORIDE 0.45% 1,000 ML IV SCH ×2 (11:29→20:35)
[2022-08-08 12:00] VITALS: BP 144/112
[2022-08-08 16:00] VITALS: BP 111/66
[2022-08-08 20:20] VITALS: BP 109/64
[2022-08-08] MEDS: MELATONIN 3 MG TABLET PO SCH (20:36)
[2022-08-09 00:32] VITALS: BP 110/62
[2022-08-09] MEDS: SODIUM CHLORIDE 0.45% 1,000 ML IV SCH (06:15)
[2022-08-09 08:10] VITALS: BP 129/105
[2022-08-09] MEDS: METOPROLOL TARTRATE 25 MG TABLET PO SCH (08:39)
[2022-08-09] MEDS: APIXABAN 2.5 MG TABLET PO SCH ×2 (08:39→20:26)
[2022-08-09] MEDS: PANTOPRAZOLE SODIUM 40 MG DR TABLET PO SCH (08:39)
[2022-08-09] MEDS: DOCUSATE SODIUM 100 MG CAPSULE PO SCH ×2 (08:40→20:26)
[2022-08-09] MEDS: BuPROPion HCL XL 150 MG ER TABLET PO SCH (08:40)
[2022-08-09] MEDS: OLANZapine 5 MG TABLET PO SCH ×2 (08:40→20:26)
[2022-08-09] MEDS: CALCITONIN,SALMON,SYNTHETIC 200 UNITS/ML 2 ML VIAL SQ SCH ×2 (08:41→20:26)
[2022-08-09 12:04] LABS: MAGNESIUM 1.1 mg/dL (1.80-2.40); PHOSPHORUS 3.5 mg/dL (2.5-4.9); POTASSIUM 3.5 mmol/L (3.5-5.1)
[2022-08-09 12:25] LABS: CREATININE 4.07 mg/dL (0.60-1.30)
[2022-08-09 12:30] VITALS: BP 127/80
[2022-08-09 12:32] LABS: CALCIUM, TOTAL 11.9 mg/dL (8.8-10.5)
[2022-08-09 15:45] VITALS: BP 107/77
[2022-08-09] MEDS: POTASSIUM CHLORIDE 10 MEQ in DEXTROSE 5%-WATER 1,000 ML IV SCH (17:29)
[2022-08-09 19:20] VITALS: BP 120/64
[2022-08-09] MEDS: MELATONIN 3 MG TABLET PO SCH (20:26)
[2022-08-09 23:41] VITALS: BP 118/60
[2022-08-10 04:19] VITALS: BP 124/60
[2022-08-10 08:15] VITALS: BP 122/72
[2022-08-10] MEDS: PANTOPRAZOLE SODIUM 40 MG DR TABLET PO SCH (08:29)
[2022-08-10] MEDS: APIXABAN 2.5 MG TABLET PO SCH ×2 (08:33→20:47)
[2022-08-10] MEDS: BuPROPion HCL XL 150 MG ER TABLET PO SCH (08:34)
[2022-08-10] MEDS: DOCUSATE SODIUM 100 MG CAPSULE PO SCH ×2 (08:41→20:47)
[2022-08-10] MEDS: METOPROLOL TARTRATE 25 MG TABLET PO SCH (08:41)
[2022-08-10] MEDS: OLANZapine 5 MG TABLET PO SCH ×2 (08:42→20:47)
[2022-08-10 08:52] LABS: CREATININE 3.87 mg/dL (0.60-1.30); POTASSIUM 3.1 mmol/L (3.5-5.1)
[2022-08-10 08:55] LABS: CALCIUM, TOTAL 13.1 mg/dL (8.8-10.5)
[2022-08-10] MEDS: CALCITONIN,SALMON,SYNTHETIC 200 UNITS/ML 2 ML VIAL SQ SCH ×2 (09:00→20:47)
[2022-08-10] MEDS ORDERED: HALOPERIDOL LACTATE 5 MG/ML VIAL IM ONE (09:30)
[2022-08-10] MEDS ORDERED: POTASSIUM CHLORIDE 20 MEQ ER TABLET PO PRN (09:30)
[2022-08-10] MEDS ORDERED: MAGNESIUM SULFATE 4 GM/WATER 100 ML IV PRN (09:30)
[2022-08-10] MEDS ORDERED: MAGNESIUM SULFATE 2 GM/WATER 50 ML IV PRN (09:30)
[2022-08-10] MEDS ORDERED: MAGNESIUM OXIDE 400 MG TABLET PO PRN (09:30)
[2022-08-10 10:16] LABS: ALBUMIN 2.4 g/dL (3.4-5.0)
[2022-08-10 11:06] VITALS: BP 105/74
[2022-08-10] MEDS: POTASSIUM CHLORIDE 10 MEQ in DEXTROSE 5%-WATER 1,000 ML IV SCH (12:15)
[2022-08-10] MEDS: POTASSIUM CHL 10 MEQ/WATER 50 ML IV PRN ×3 (12:24→15:50)
[2022-08-10] MEDS ORDERED: LORazepam 2 MG/ML VIAL IVP ONE (13:00)
[2022-08-10] MEDS ORDERED: LORazepam 2 MG/ML VIAL IVP PRN (13:00)
[2022-08-10] MEDS ORDERED: MAGNESIUM SULFATE 2 GM/WATER 50 ML IV ONE (13:00)
[2022-08-10 15:04] VITALS: BP 106/72
[2022-08-10 19:59] VITALS: BP 146/76
[2022-08-10] MEDS: MELATONIN 3 MG TABLET PO SCH (20:47)
[2022-08-10 23:42] VITALS: BP 140/77
[2022-08-11] MEDS: POTASSIUM CHLORIDE 10 MEQ in DEXTROSE 5%-WATER 1,000 ML IV SCH ×2 (01:01→17:54)
[2022-08-11 05:15] VITALS: BP 129/75
[2022-08-11 08:11] VITALS: BP 130/70
[2022-08-11 08:55] LABS: CREATININE 3.96 mg/dL (0.60-1.30); MAGNESIUM 1.6 mg/dL (1.80-2.40); PHOSPHORUS 2.9 mg/dL (2.5-4.9)
[2022-08-11] MEDS: DOCUSATE SODIUM 100 MG CAPSULE PO SCH ×2 (09:00→20:20)
[2022-08-11] MEDS: OLANZapine 5 MG TABLET PO SCH ×2 (09:21→20:20)
[2022-08-11] MEDS: BuPROPion HCL XL 150 MG ER TABLET PO SCH (09:21)
[2022-08-11] MEDS: APIXABAN 2.5 MG TABLET PO SCH ×2 (09:21→20:20)
[2022-08-11] MEDS: PANTOPRAZOLE SODIUM 40 MG DR TABLET PO SCH (09:21)
[2022-08-11] MEDS: METOPROLOL TARTRATE 25 MG TABLET PO SCH (09:23)
[2022-08-11] MEDS: CALCITONIN,SALMON,SYNTHETIC 200 UNITS/ML 2 ML VIAL SQ SCH (10:23)
[2022-08-11] MEDS ORDERED: MAGNESIUM SULFATE 1 GM in DEXTROSE 5%-WATER 50 ML IV ONE (10:45)
[2022-08-11 11:47] VITALS: BP 120/65
[2022-08-11 16:03] VITALS: BP 109/61
[2022-08-11 20:10] VITALS: BP 116/68
[2022-08-11] MEDS: MELATONIN 3 MG TABLET PO SCH (20:20)
[2022-08-12 00:01] VITALS: BP 111/68
[2022-08-12 04:44] VITALS: BP 119/66
[2022-08-12 08:00] VITALS: BP 115/63
[2022-08-12 08:21] LABS: CALCIUM, TOTAL 11.3 mg/dL (8.8-10.5); CREATININE 3.89 mg/dL (0.60-1.30); MAGNESIUM 1.5 mg/dL (1.80-2.40); POTASSIUM 3.8 mmol/L (3.5-5.1)
[2022-08-12] MEDS: PANTOPRAZOLE SODIUM 40 MG DR TABLET PO SCH (08:37)
[2022-08-12] MEDS: METOPROLOL TARTRATE 25 MG TABLET PO SCH (08:37)
[2022-08-12] MEDS: BuPROPion HCL XL 150 MG ER TABLET PO SCH (08:37)
[2022-08-12] MEDS: APIXABAN 2.5 MG TABLET PO SCH ×2 (08:38→22:15)
[2022-08-12] MEDS: OLANZapine 5 MG TABLET PO SCH ×2 (08:38→22:15)
[2022-08-12] MEDS: DOCUSATE SODIUM 100 MG CAPSULE PO SCH ×2 (08:38→22:14)
[2022-08-12] MEDS: POTASSIUM CHLORIDE 10 MEQ in DEXTROSE 5%-WATER 1,000 ML IV SCH (09:32)
[2022-08-12] MEDS ORDERED: MAGNESIUM SULFATE 2 GM/WATER 50 ML IV ONE (10:30)
[2022-08-12] MEDS ORDERED: SODIUM CHLORIDE 0.9% 250 ML IV ONE (10:34)
[2022-08-12 16:30] VITALS: BP 118/65
[2022-08-12] MEDS ORDERED: DENOSUMAB 60 MG/ML SYRINGE SQ ONE (17:15)
[2022-08-12 20:00] VITALS: BP 106/68
[2022-08-12] MEDS: MELATONIN 3 MG TABLET PO SCH (22:14)
[2022-08-12 23:29] VITALS: BP 117/69
[2022-08-13 04:07] VITALS: BP 120/73
[2022-08-13 07:05] LABS: CALCIUM, TOTAL 10.6 mg/dL (8.8-10.5); CREATININE 3.92 mg/dL (0.60-1.30); MAGNESIUM 1.7 mg/dL (1.80-2.40); POTASSIUM 3.4 mmol/L (3.5-5.1)
[2022-08-13] MEDS: APIXABAN 2.5 MG TABLET PO SCH ×2 (08:25→20:03)
[2022-08-13] MEDS: OLANZapine 5 MG TABLET PO SCH ×2 (08:25→20:04)
[2022-08-13] MEDS: BuPROPion HCL XL 150 MG ER TABLET PO SCH (08:25)
[2022-08-13] MEDS: DOCUSATE SODIUM 100 MG CAPSULE PO SCH ×2 (08:25→20:06)
[2022-08-13] MEDS: PANTOPRAZOLE SODIUM 40 MG DR TABLET PO SCH (08:25)
[2022-08-13] MEDS: METOPROLOL TARTRATE 25 MG TABLET PO SCH (08:26)
[2022-08-13 08:30] VITALS: BP 124/69
[2022-08-13] MEDS ORDERED: MAGNESIUM SULFATE 1 GM in DEXTROSE 5%-WATER 50 ML IV ONE (11:15)
[2022-08-13] MEDS: POTASSIUM CHLORIDE 20 MEQ ER TABLET PO SCH (11:15)
[2022-08-13 16:29] VITALS: BP 111/95
[2022-08-13 19:44] VITALS: BP 112/74
[2022-08-13] MEDS: MELATONIN 3 MG TABLET PO SCH (20:03)
[2022-08-13] MEDS: QUEtiapine FUMARATE 25 MG TABLET PO SCH (20:19)
[2022-08-14] VITALS (7 sets, daily range): BP systolic 105–123; BP diastolic 66–76
[2022-08-14] MEDS: DOCUSATE SODIUM 100 MG CAPSULE PO SCH ×2 (09:00→21:53)
[2022-08-14] MEDS: METOPROLOL SUCCINATE 25 MG ER TABLET PO SCH (09:22)
[2022-08-14] MEDS: PANTOPRAZOLE SODIUM 40 MG DR TABLET PO SCH (09:22)
[2022-08-14] MEDS: APIXABAN 2.5 MG TABLET PO SCH ×2 (09:22→21:53)
[2022-08-14] MEDS: OLANZapine 5 MG TABLET PO SCH ×2 (09:22→21:53)
[2022-08-14] MEDS: POTASSIUM CHLORIDE 20 MEQ ER TABLET PO SCH (09:22)
[2022-08-14] MEDS: QUEtiapine FUMARATE 25 MG TABLET PO SCH ×2 (09:22→21:53)
[2022-08-14] MEDS: BuPROPion HCL XL 150 MG ER TABLET PO SCH (09:22)
[2022-08-14 11:43] LABS: CALCIUM, TOTAL 11.4 mg/dL (8.8-10.5); CREATININE 4.19 mg/dL (0.60-1.30); POTASSIUM 4.1 mmol/L (3.5-5.1)
[2022-08-14] MEDS: MELATONIN 3 MG TABLET PO SCH (21:53)
[2022-08-15 00:33] VITALS: BP 111/62
[2022-08-15 04:49] VITALS: BP 107/71
[2022-08-15 07:23] LABS: CREATININE 4.08 mg/dL (0.60-1.30)
[2022-08-15 07:26] LABS: CALCIUM, TOTAL 12.1 mg/dL (8.8-10.5)
[2022-08-15] MEDS ORDERED: DEXTROSE 5%-WATER 500 ML IV ONE (08:00)
[2022-08-15 08:10] VITALS: BP 115/65
[2022-08-15] MEDS: QUEtiapine FUMARATE 25 MG TABLET PO SCH ×2 (10:29→21:26)
[2022-08-15] MEDS: APIXABAN 2.5 MG TABLET PO SCH ×2 (10:29→21:26)
[2022-08-15] MEDS: DOCUSATE SODIUM 100 MG CAPSULE PO SCH ×2 (10:29→21:26)
[2022-08-15] MEDS: METOPROLOL SUCCINATE 25 MG ER TABLET PO SCH (10:29)
[2022-08-15] MEDS: OLANZapine 5 MG TABLET PO SCH ×2 (10:30→21:26)
[2022-08-15] MEDS: PANTOPRAZOLE SODIUM 40 MG DR TABLET PO SCH (10:30)
[2022-08-15] MEDS: BuPROPion HCL XL 150 MG ER TABLET PO SCH (10:30)
[2022-08-15] MEDS: POTASSIUM CHLORIDE 20 MEQ ER TABLET PO SCH (10:30)
[2022-08-15 10:59] VITALS: BP 104/63
[2022-08-15 16:05] VITALS: BP 114/64
[2022-08-15 17:31] LABS: GLUCOMETER DEV NAME(LOC) 5S.2B; GLUCOSE,POINT OF CARE 135 MG/DL (70-110)
[2022-08-15 19:56] VITALS: BP 104/56
[2022-08-15] MEDS: MELATONIN 3 MG TABLET PO SCH (21:27)
[2022-08-16 00:04] VITALS: BP 103/68
[2022-08-16 04:00] VITALS: BP 113/67
[2022-08-16 06:21] LABS: CREATININE 4.01 mg/dL (0.60-1.30)
[2022-08-16 06:26] LABS: BASOPHILS % (AUTO) 0.3 % (0.0-2.0); EOSINOPHILS % (AUTO) 0.1 % (1.0-6.0); HEMATOCRIT 32.4 % (41-53); HEMOGLOBIN 10.9 g/dL (13.5-17.5); LYMPHOCYTES # (AUTO) 0.4 K/uL (1.0-4.8); LYMPHOCYTES % (AUTO) 20.4 % (22.0-44.0); MEAN CORPUSCULAR HEMOGLOBIN 33.7 pg (26.0-34.0); MEAN CORPUSCULAR HGB CONC 33.5 G/dL (31.0-37.0); MEAN CORPUSCULAR VOLUME 101 fL (80-100); MONOCYTES # (AUTO) 0.4 K/uL (0.1-1.0); MONOCYTES % (AUTO) 18.3 % (2.0-9.0); NEUTROPHILS # (AUTO) 1.2 K/uL (1.8-7.7); NEUTROPHILS % (AUTO) 60.9 % (40.0-70.0); RED BLOOD CELL COUNT(AUTO) 3.22 MIL/uL (4.50-5.90); RED CELL DISTRIBUTION WIDTH 16.4 % (11.5-14.5)
[2022-08-16 06:28] LABS: CALCIUM, TOTAL 12.4 mg/dL (8.8-10.5)
[2022-08-16 07:50] VITALS: BP 104/66
[2022-08-16] MEDS: BuPROPion HCL XL 150 MG ER TABLET PO SCH (09:23)
[2022-08-16] MEDS: OLANZapine 5 MG TABLET PO SCH ×2 (09:23→21:41)
[2022-08-16] MEDS: PANTOPRAZOLE SODIUM 40 MG DR TABLET PO SCH (09:23)
[2022-08-16] MEDS: APIXABAN 2.5 MG TABLET PO SCH ×2 (09:23→21:41)
[2022-08-16] MEDS: METOPROLOL SUCCINATE 25 MG ER TABLET PO SCH (09:23)
[2022-08-16] MEDS: QUEtiapine FUMARATE 25 MG TABLET PO SCH ×2 (09:23→21:40)
[2022-08-16] MEDS: DOCUSATE SODIUM 100 MG CAPSULE PO SCH ×2 (09:24→21:40)
[2022-08-16 09:28] LABS: PLATELET COUNT (AUTO) 51 K/uL (150-450)
[2022-08-16] MEDS ORDERED: DEXTROSE 5%-WATER 500 ML IV ONE (10:45)
[2022-08-16 11:37] VITALS: BP 143/84
[2022-08-16 15:35] VITALS: BP 105/57
[2022-08-16 19:37] VITALS: BP 113/76
[2022-08-16] MEDS: MELATONIN 3 MG TABLET PO SCH (21:41)
[2022-08-17] VITALS (7 sets, daily range): BP systolic 100–112; BP diastolic 62–72
[2022-08-17] MEDS: APIXABAN 2.5 MG TABLET PO SCH ×2 (08:37→21:48)
[2022-08-17] MEDS: QUEtiapine FUMARATE 25 MG TABLET PO SCH ×2 (08:37→21:48)
[2022-08-17] MEDS: BuPROPion HCL XL 150 MG ER TABLET PO SCH (08:37)
[2022-08-17] MEDS: OLANZapine 5 MG TABLET PO SCH ×2 (08:38→21:48)
[2022-08-17] MEDS: DOCUSATE SODIUM 100 MG CAPSULE PO SCH ×2 (08:38→21:48)
[2022-08-17] MEDS: METOPROLOL SUCCINATE 25 MG ER TABLET PO SCH (08:38)
[2022-08-17] MEDS: PANTOPRAZOLE SODIUM 40 MG DR TABLET PO SCH (08:38)
[2022-08-17 11:11] LABS: ALBUMIN 2.3 g/dL (3.4-5.0); CREATININE 4.28 mg/dL (0.60-1.30); POTASSIUM 3.8 mmol/L (3.5-5.1)
[2022-08-17 11:14] LABS: CALCIUM, TOTAL 12.1 mg/dL (8.8-10.5)
[2022-08-17] MEDS: MELATONIN 3 MG TABLET PO SCH (21:48)
[2022-08-18 00:35] VITALS: BP 106/70
[2022-08-18 04:45] VITALS: BP 98/62
[2022-08-18 08:10] VITALS: BP 115/67
[2022-08-18] MEDS: DOCUSATE SODIUM 100 MG CAPSULE PO SCH ×2 (09:00→19:58)
[2022-08-18] MEDS: APIXABAN 2.5 MG TABLET PO SCH ×2 (09:30→19:57)
[2022-08-18] MEDS: BuPROPion HCL XL 150 MG ER TABLET PO SCH (09:30)
[2022-08-18] MEDS: OLANZapine 5 MG TABLET PO SCH ×2 (09:30→19:57)
[2022-08-18] MEDS: PANTOPRAZOLE SODIUM 40 MG DR TABLET PO SCH (09:31)
[2022-08-18] MEDS: METOPROLOL SUCCINATE 25 MG ER TABLET PO SCH (09:31)
[2022-08-18] MEDS: QUEtiapine FUMARATE 25 MG TABLET PO SCH ×2 (09:33→19:57)
[2022-08-18] MEDS ORDERED: SODIUM CHLORIDE 0.9% 500 ML IV ONE (10:00)
[2022-08-18 11:01] LABS: BASOPHILS % (AUTO) 0.3 % (0.0-2.0); EOSINOPHILS % (AUTO) 0 % (1.0-6.0); HEMATOCRIT 31.7 % (41-53); HEMOGLOBIN 10.6 g/dL (13.5-17.5); LYMPHOCYTES # (AUTO) 0.4 K/uL (1.0-4.8); LYMPHOCYTES % (AUTO) 15.9 % (22.0-44.0); MEAN CORPUSCULAR HEMOGLOBIN 34.3 pg (26.0-34.0); MEAN CORPUSCULAR HGB CONC 33.5 G/dL (31.0-37.0); MEAN CORPUSCULAR VOLUME 102 fL (80-100); MONOCYTES # (AUTO) 0.4 K/uL (0.1-1.0); MONOCYTES % (AUTO) 15.3 % (2.0-9.0); NEUTROPHILS # (AUTO) 1.6 K/uL (1.8-7.7); NEUTROPHILS % (AUTO) 68.5 % (40.0-70.0); PLATELET COUNT (AUTO) 59 K/uL (150-450); RED CELL DISTRIBUTION WIDTH 16.2 % (11.5-14.5)
[2022-08-18 11:30] VITALS: BP 115/60
[2022-08-18 12:09] LABS: CREATININE 4.37 mg/dL (0.60-1.30); MAGNESIUM 1.6 mg/dL (1.80-2.40); PHOSPHORUS 4.6 mg/dL (2.5-4.9); POTASSIUM 3.7 mmol/L (3.5-5.1)
[2022-08-18] MEDS ORDERED: HALOPERIDOL LACTATE 5 MG/ML VIAL IM ONE (13:45)
[2022-08-18] MEDS: MELATONIN 3 MG TABLET PO SCH (19:57)
[2022-08-18 20:27] VITALS: BP 110/58
[2022-08-18 21:26] VITALS: BP 112/72
[2022-08-19 04:17] VITALS: BP 109/72
[2022-08-19 07:19] VITALS: BP 97/63
[2022-08-19] MEDS: PANTOPRAZOLE SODIUM 40 MG DR TABLET PO SCH (08:51)
[2022-08-19] MEDS: METOPROLOL SUCCINATE 25 MG ER TABLET PO SCH ×2 (08:52→08:55)
[2022-08-19] MEDS: DOCUSATE SODIUM 100 MG CAPSULE PO SCH ×2 (08:52→20:12)
[2022-08-19] MEDS: OLANZapine 5 MG TABLET PO SCH ×2 (08:52→20:11)
[2022-08-19] MEDS: APIXABAN 2.5 MG TABLET PO SCH ×2 (08:52→20:12)
[2022-08-19] MEDS: QUEtiapine FUMARATE 25 MG TABLET PO SCH ×2 (08:52→20:11)
[2022-08-19] MEDS: BuPROPion HCL XL 150 MG ER TABLET PO SCH (08:54)
[2022-08-19 16:35] VITALS: BP 101/78
[2022-08-19 19:47] VITALS: BP 100/55
[2022-08-19] MEDS: MELATONIN 3 MG TABLET PO SCH (20:11)
[2022-08-20 04:44] VITALS: BP 120/72
[2022-08-20 07:39] VITALS: BP 123/74
[2022-08-20] MEDS: PANTOPRAZOLE SODIUM 40 MG DR TABLET PO SCH (09:46)
[2022-08-20] MEDS: OLANZapine 5 MG TABLET PO SCH ×2 (09:46→21:11)
[2022-08-20] MEDS: DOCUSATE SODIUM 100 MG CAPSULE PO SCH ×2 (09:46→21:11)
[2022-08-20] MEDS: BuPROPion HCL XL 150 MG ER TABLET PO SCH (09:47)
[2022-08-20] MEDS: METOPROLOL SUCCINATE 25 MG ER TABLET PO SCH (09:47)
[2022-08-20] MEDS: QUEtiapine FUMARATE 25 MG TABLET PO SCH ×2 (09:47→21:12)
[2022-08-20] MEDS: APIXABAN 2.5 MG TABLET PO SCH ×2 (09:47→21:11)
[2022-08-20 14:00] LABS: COVID AG,FIA SOURCE NASOPHARYNGEAL
[2022-08-20] MEDS ORDERED: QUET25TA PO (14:19)
[2022-08-20 16:30] VITALS: BP 88/51
[2022-08-20] MEDS ORDERED: SODIUM CHLORIDE 0.9% 500 ML IV ONE ×2 (16:52→17:00)
[2022-08-20] MEDS: ACETAMINOPHEN 325 MG TABLET PO PRN (17:36)
[2022-08-20 18:02] VITALS: BP 135/93
[2022-08-20 18:18] LABS: APPEARANCE,URINE CLEAR (CLEAR); BILIRUBIN,URINE NEGATIVE (NEGATIVE); GLUCOSE, URINE (UA) NEGATIVE (NEGATIVE); KETONES,URINE NEGATIVE (NEGATIVE); LEUKOCYTE ESTERASE ,URINE TRACE (NEGATIVE); NITRATE,URINE NEGATIVE (NEGATIVE); OCCULT BLOOD,URINE TRACE (NEGATIVE); PH,URINE 6.5 (5.0-8.0); PROTEIN,URINE TRACE mg/dL (NEGATIVE); SPECIFIC GRAVITIY, URINE 1.014 (1.003-1.030); UROBILINOGEN,URINE <=1.0 mg/dL (<=1.0)
[2022-08-20 18:32] LABS: BACTERIA,URINE None Seen /HPF (None Seen); SQUAMOUS EPITHELIAL CELL,UR None Seen /LPF (None Seen)
[2022-08-20 18:33] LABS: CALCIUM OXALATE CRYSTALS,UR Few /LPF (None Seen)
[2022-08-20 19:28] VITALS: BP_SYST 100; BP_SYST 123; BP_DIAS 114; BP_DIAS 70
[2022-08-20] MEDS: MELATONIN 3 MG TABLET PO SCH (21:11)
[2022-08-21 04:00] VITALS: BP 118/54
[2022-08-21] MEDS: ACETAMINOPHEN 325 MG TABLET PO PRN (04:50)
[2022-08-21] MEDS ORDERED: SODIUM CHLORIDE 0.9% 250 ML IV ONE ×2 (06:30→11:45)
[2022-08-21] MEDS ORDERED: SODIUM CHLORIDE 0.9% 1,000 ML ONE (06:41)
[2022-08-21 08:48] VITALS: BP 92/46
[2022-08-21] MEDS: BuPROPion HCL XL 150 MG ER TABLET PO SCH (09:00)
[2022-08-21] MEDS: PANTOPRAZOLE SODIUM 40 MG DR TABLET PO SCH (09:00)
[2022-08-21] MEDS: APIXABAN 2.5 MG TABLET PO SCH ×2 (09:00→20:17)
[2022-08-21] MEDS: METOPROLOL SUCCINATE 25 MG ER TABLET PO SCH (09:00)
[2022-08-21] MEDS: OLANZapine 5 MG TABLET PO SCH ×2 (09:00→20:16)
[2022-08-21] MEDS: DOCUSATE SODIUM 100 MG CAPSULE PO SCH ×2 (09:00→20:17)
[2022-08-21] MEDS: QUEtiapine FUMARATE 25 MG TABLET PO SCH ×2 (09:00→20:17)
[2022-08-21] MEDS ORDERED: ACETAMINOPHEN 650 MG RECTAL SUPPOSITORY PR PRN (11:45)
[2022-08-21] MEDS: SODIUM CHLORIDE 0.9% 1,000 ML IV SCH (12:05)
[2022-08-21 16:27] VITALS: BP 96/62
[2022-08-21 19:58] VITALS: BP 142/71
[2022-08-21] MEDS: MELATONIN 3 MG TABLET PO SCH (20:16)
[2022-08-21] MEDS ORDERED: VANCOMYCIN HCL 1 GM in DEXTROSE 5%-WATER 250 ML IV PRN (23:45)
[2022-08-22] VITALS: BP 140/52
[2022-08-22] MEDS ORDERED: VANCOMYCIN HCL 1.5 GM in DEXTROSE 5%-WATER 250 ML IV ONE ×2
[2022-08-22] MEDS: SODIUM CHLORIDE 0.9% 1,000 ML IV SCH (00:02)
[2022-08-22] MEDS: ACETAMINOPHEN 325 MG TABLET PO PRN (00:21)
[2022-08-22 05:30] VITALS: BP 58/34
[2022-08-22 05:32] VITALS: BP 58/37
[2022-08-22 06:09] VITALS: BP 71/40
[2022-08-22] MEDS: MORPHINE SULFATE 2 MG/ML SYRINGE IVP PRN ×2 (06:16→10:53)
[2022-08-22 08:41] VITALS: BP 87/47
[2022-08-22 12:02] LABS: COVID AG,FIA SOURCE NASOPHARYNGEAL
[2022-08-22 16:07] VITALS: BP 106/55
[2022-08-23 00:11] LABS: GLUCOMETER DEV NAME(LOC) 6N.2B; GLUCOSE,POINT OF CARE 146 MG/DL (70-110)
== END 2022-08-22 18:23 | disposition hospice, home (50) | DRG 682 ==
LOC: EMS 15:16 → 5S 08-07 18:22 → 6S 08-18 21:17 → 6N 08-19 09:09 → 6S 08-20 11:03
PROVIDERS: ADMIT Internal Medicine; ATTEND Internal Medicine
DX: N17.9 Acute kidney failure, unspecified (principal); G92.8 Other toxic encephalopathy; E87.0 Hyperosmolality and hypernatremia; I50.22 Chronic systolic (congestive) heart failure; I42.9 Cardiomyopathy, unspecified; I48.92 Unspecified atrial flutter; E83.52 Hypercalcemia; K72.90 Hepatic failure, unspecified without coma; E87.6 Hypokalemia; D69.6 Thrombocytopenia, unspecified; D86.9 Sarcoidosis, unspecified; E03.9 Hypothyroidism, unspecified; E21.0 Primary hyperparathyroidism; E66.9 Obesity, unspecified; E83.42 Hypomagnesemia; F10.20 Alcohol dependence, uncomplicated; N18.30 Chronic kidney disease, stage 3 unspecified; I25.10 Atherosclerotic heart disease of native coronary artery without angina pectoris; I48.91 Unspecified atrial fibrillation; K74.60 Unspecified cirrhosis of liver; N25.0 Renal osteodystrophy; R62.7 Adult failure to thrive; Z66 Do not resuscitate; K21.9 Gastro-esophageal reflux disease without esophagitis; R33.8 Other retention of urine; M19.90 Unspecified osteoarthritis, unspecified site; E78.00 Pure hypercholesterolemia, unspecified; Z20.822 Contact with and (suspected) exposure to COVID-19; F32.A Depression, unspecified; R31.9 Hematuria, unspecified; Z51.5 Encounter for palliative care; Z78.1 Physical restraint status; Z79.01 Long term (current) use of anticoagulants; Z79.899 Other long term (current) drug therapy; Z86.16 Personal history of COVID-19; Z68.32 Body mass index [BMI] 32.0-32.9, adult; Z95.810 Presence of automatic (implantable) cardiac defibrillator
CPT/HCPCS: 71045; 71250; 72192; 74150; 80048; 80053; 81001; 82040; 82140; 82164; 82330; 82570; 82652; 82962; 83735; 83880; 83970; 84100; 84132; 84300; 84443; 85025; 85610; 87040; 87077; 87081; 87205; 92610; 93005; 99291; G0378; J0630; J1630; J1644; J2060; J2270; J2430; J3370; J3475; J3480; J7030; J7040; J7050; J7060; Q9967; 36415-L1; 36415-TC